=== PATIENT | male | born 2000 | race African-American/Black ===

== ENCOUNTER 2020-08-11 09:50 | Emergency (ER) | payer BC, MEDICAID ==
[~2020-08-11] VITALS: Ht 177.8 cm; Wt 86.2 kg
[2020-08-11 10:39] VITALS: BP 121/66
== END 2020-08-11 12:37 | disposition home or self-care (01) ==
LOC: ER 09:50
DX: S63.642A Sprain of metacarpophalangeal joint of left thumb, initial encounter (principal); X50.0XXA Overexertion from strenuous movement or load, initial encounter; Y93.89 Activity, other specified; Y92.89 Other specified places as the place of occurrence of the external cause; Y99.8 Other external cause status